=== PATIENT | female | born 1935 | race Caucasian/White ===

== ENCOUNTER 2024-01-26 17:49 | Emergency (ER) | payer MEDICARE, OTHER, SELFPAY ==
[2024-01-26 17:52] VITALS: BP 152/81
[2024-01-26] MEDS: TYLENOL 650 MG PO (19:45)
[2024-01-26 20:00] VITALS: BP 143/67
--- NOTE | 2024-01-26 20:40 | ED.GENMED ---
History of Present Illness
<Alva Turk PA-C - Last Filed: 01/27/24 00:15>
General
Chief Complaint: Fall
Source: patient
Exam Limitations: none
Time Seen by Provider: 01/26/24 18:53
Nursing documentation reviewed up to this point in time: agreed with
History of Present Illness
History of Present Illness:
88 Y/O F
not anticoaglated
today was walking up the concretet steps into the house and tripped hitting her face on the steps
no LOC
several lacerations to face, some bruising and pain
also with a skin tear on right 5th finger and some pain in here hand
mild headache and neck pain as well, feels sor between shoulders, no limited ROM
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
occured around 5 pm
no nausea, vomiting,, confusino, weakness, numbness, cp, sob, abdominal pain, pelvic pain, back pain
tetanus unknown
Past History
<BRONSON Guerra Last Filed: 01/27/24 00:15>
Past History
ED Past Medical History: HTN and Other (Osteopenia, GERD, C. difficile, Giardia); Negative NIDDM
ED Past Surgical History: Appendectomy
Social History
Tobacco: Non-smoker
Drug: None
Living: alone
Review of Systems
<Alva Turk PA-C - Last Filed: 01/27/24 00:15>
Review of Systems
Allergies reviewed?: Yes
All Other Systems: Not applicable
Phy Exam
<BRONSON Guerra Last Filed: 01/27/24 00:15>
Physical Exam
Physical Exam:
GENERAL: Alert , in no apparent distress
HEAD:
right forehead lacerations x 2 )5 cm, and 4 cm
right zyogma skin avulsion approx 1 cm
mild tendrness to zygoma on R but no significant facial bone tendenress
able to open jaw
NECK: no midline tenderness, active ROM intact, mild paraspinal muscle tenderness;
EYE: pupils equal and reactive, EOMs intact.
ENT: o/p clr, mmm. no hemotympanum
dried blood right nostril
no dental injury
CARDIAC: Regular rate and rhythm, no edema
LUNGS: Clear breath sounds bilaterally, no acute respiratory distress, no wheezes/rales/rhonchi
ABDOMEN: Soft, without focal tenderness, no r/g, no cvat
NEUROLOGICAL: Alert and oriented, no focal neuro deficits, CN intact, 5/5 strength, sensation intact, finger to nose normal
SKIN: Warm and dry, skin tear right 5th MCP joint approx 1 cm arc shaped, superficial
MUSCULOSKELETAL: arthritis b/l hands
mild pain in the 5th mcp joint/finger
no wrist tenderness
no hip tenderness
PSYCH: Normal and appropriate interaction.
Course
<Alva Turk PA-C - Last Filed: 01/27/24 00:15>
Orders/Labs/Results
Orders:
Orders
01/26/24 19:23
CT Cervical Spine W/o Iv Contr Urgent
Comment:
Reason For Exam: neck pain, fall
CT Facial Bones W/o Iv Contras Urgent
Comment:
Reason For Exam: right sided facial wounds after fall
Tetanus/Diphth/Acelpertussis [Adacel] 0.5 ml IM .ONCE ONE
01/26/24 19:24
CT Head W/o Iv Contrast Urgent
Comment:
Reason For Exam: fall hit head
CR Hand - Right Min 3 Views Urgent
Comment:
Reason For Exam: right hand injury fall
01/26/24 19:40
Acetaminophen [Tylenol] 650 mg PO NOW STA
01/26/24 21:03
CT Thoracic Spine W/o Iv Contr Urgent
Comment:
Reason For Exam: trauma
Vital Signs
Initial and Last Documented VS:
Initial Vital Signs
Temp Pulse Resp BP Pulse Ox
98.2 F 65 18 152/81 96
01/26/24 17:52 01/26/24 17:52 01/26/24 17:52 01/26/24 17:52 01/26/24 17:52
Last Documented Vital Signs
Temp Pulse Resp BP Pulse Ox
98.2 F 52 18 143/67 96
01/26/24 17:52 01/26/24 20:00 01/26/24 20:00 01/26/24 20:00 01/26/24 20:00
<Donis Ziegler MD - Last Filed: 01/26/24 21:51>
Orders/Labs/Results
Orders:
Orders
01/26/24 19:23
CT Cervical Spine W/o Iv Contr Urgent
Comment:
Reason For Exam: neck pain, fall
CT Facial Bones W/o Iv Contras Urgent
Comment:
Reason For Exam: right sided facial wounds after fall
Tetanus/Diphth/Acelpertussis [Adacel] 0.5 ml IM .ONCE ONE
01/26/24 19:24
CT Head W/o Iv Contrast Urgent
Comment:
Reason For Exam: fall hit head
CR Hand - Right Min 3 Views Urgent
Comment:
Reason For Exam: right hand injury fall
01/26/24 19:40
Acetaminophen [Tylenol] 650 mg PO NOW STA
01/26/24 21:03
CT Thoracic Spine W/o Iv Contr Urgent
Comment:
Reason For Exam: trauma
Vital Signs
Initial and Last Documented VS:
Initial Vital Signs
Temp Pulse Resp BP Pulse Ox
98.2 F 65 18 152/81 96
01/26/24 17:52 08/03/24 17:52 01/26/24 17:52 01/26/24 17:52 01/26/24 17:52
Last Documented Vital Signs
Temp Pulse Resp BP Pulse Ox
98.2 F 52 18 143/67 96
01/26/24 17:52 01/26/24 20:00 01/26/24 20:00 01/26/24 20:00 01/26/24 20:00
Procedures
<Alva Turk PA-C - Last Filed: 01/27/24 00:15>
Laceration Closure
Right Lateral Face:
Status of Wound: clean
Size of Wound in cm: 9
Description of Wound Edges: sharp
Preparation: cleaned with saline
Anesthesia: 1% Lidocaine with epi
Revision/Debridement: minor revision
Wound exploration: explored to base- no FB
Type of Closure: single layer closure
Skin Closure Material: 6-0 nylon
Number of sutures: 16
<Alva Turk PA-C - Last Filed: 01/27/24 00:15>
MDM/Problems Addressed
Differential Diagnosis Includes:
concussion, facial fracture, ICH, cervical strain, fracture
MDM/Problems Addressed:
88 y/o F with h/o htn, gerd, hyporhtyoid
no thinners
witnessed fall up the steps, pt recalls tripping and hitting face
was waearing glasses, has laceration son forehead and face and some pain to her right zygoma and forehead and nose, mild neck sorenss, no confusion, weakness, vomiting
also some right hand pain
on exam well apearing, neuro intact
no midline cerivcal tendernses initially able to range neck
cts of head/face show no ICH, + nasal fx age indeterminant
CT cs pein shows t1 compression fx minimal retropulsion, appears acute
pt reassessed by ed attending having some lower t spine soreness, so ct recommended by rads
she has chrnoic appearing t2, t12 fx pt made aware
ed attending dr. ziegler d/w nsg attending dr. peterson, recommneded motrin for pain and no collar and outpatient management given no signs of cuada equina
pt's wounds were irrigated and repaired
d/c home
<Alva Turk PA-C - Last Filed: 01/27/24 00:15>
*Critical Care Note
Total Time (30-74mins, 75-104mins- exclusive of procedures): Not Applicable
ED Attending Note
<Alva Turk PA-C - Last Filed: 01/27/24 00:15>
-
Portions of this chart may have been created with voice recognition software.� Occasional wrong word or��sound alike� substitutions may have occurred due to the inherent limitations of voice recognition software.
<Donis Ziegler MD - Last Filed: 01/26/24 21:51>
ED Attending Note
Patient seen and examined by attending physician: Yes
I performed the substantive portion of visit, reviewed & personally made and approve the management plan that is documented in note by myself or ASHLEY.: Yes
ED Attending Note:
Patient fell on the concrete. No syncope. Hit her head. Some mild neck pain. A small skin tear to her digit. No numbness tingling or weakness.
Large laceration of the right forehead. Mild paracervical and upper thoracic tenderness. In no distress. Nonfocal. No chest wall tenderness. Abdomen benign. Warm and dry perfusing well nonfocal.
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 Tetanus shot. CT scan showed a 30% compression fracture T1. The rest of the thoracic spine will be done for completeness. Discussed with neurosurgery. Symptomatic treatment and follow-up
Discharge Plan
Departure
Patient Disposition: Home (Routine Discharge)
Date of Disposition: 01/26/24
Time of Disposition: 22:25
Patient with high blood pressure during this ER visit?: Yes
Condition: Fair
Covid-19: Not Applicable
Discharge Problem:
Fracture of nasal bone, Fall, Compression fracture of T1 vertebra, Laceration of face, Finger fracture, right
Instructions: Laceration Repair With Stitches (DC), Vertebral Compression Fracture (DC), Nose Fracture ED
Prescriptions:
No Action
lisinopril 10 MG tablet
10 mg PO HS
sertraline 50 MG tablet
50 mg PO HS
acetaminophen [Tylenol Extra Strength] 500 MG tablet
1,000 mg PO Q6HPRN PRN (Reason: mild pain)
levothyroxine 50 MCG tablet
50 mcg PO HS
ibuprofen 200 MG tablet
400 mg PO Q4HPRN PRN (Reason: mild pain)
omeprazole [Prilosec] 20 MG capsule,delayed release(DR/EC)
20 mg PO DAILYPRN PRN (Reason: heartburn)
zolpidem 10 MG tablet
5 mg PO HS
polyethylene glycol 3350 17 GRAMS powder in packet
17 grams PO DAILY 0RF
oxycodone 5 MG tablet
5 mg PO Q4HPRN PRN (Reason: moderate/severe pain) Qty: 15 0RF
cefuroxime axetil 500 MG tablet
500 mg PO BID Qty: 6 0RF
Rx Instructions:
Take for 3 days
hydrocodone-acetaminophen [Wister] 1 EACH tablet
1 ea PO Q6HPRN PRN (Reason: severe pain) Qty: 8 0RF
Referrals:
Eloina Peterson MD [Active] - Follow up in 5-7 days
UNKNOWN - PT DOES,NOT KNOW [Family Provider] -
Activity Restrictions/Additional Instructions:
YOU HAVE A COMPRESSION FRACTURE OF T1 THAT LOOKS ACUTE; YOU HAVE A NOSE FRACTURE WELL WHICH IS NONDISPLACED AND SHOULD NOT REQUIRE ANY ADDITIONAL TREATMENT
YOUR NECK COULD BE SORE
TYLENOL AND MOTRIN FOR PAIN NEEDED
YOU ALSO HAVE OLD APPEARING T2 AND T12 COMPRESSION FRACTURES (AGE INDETERMINANT BUT DO NOT LOOK ACUTE LIKE T1)
WATCH FOR WORSENING PAIN, WEAKNESS IN ARMS OR LEGS, NUMBNESS IN ARMS OR LEGS OR ANY CONCERNS AND RETURN NEEDED
OTHERWISE FOLLOW UP WITH NEUROSURGERY OUTPATIENT
KEEP THE WOUND CLEAN AND DRY FOR 24 HOURS
AFTER THAT YOU CAN GET IT WET IN THE BATH/SHOWER ONCE A DAY AND MAKE SURE IT IS CLEAN AND THERE IS NO DRIED BLOOD ON THE STITCHES
APPLY NEOSPORIN AND A BANDAID
THE STITCHES NEED TO BE REMOVED IN ABOUT 7 DAYS, SEE YOUR DOCTOR FOR THIS.
THE LAST DAY BEFORE STITCHES OUT, NO OINTMENT, LEAVE OPEN TO AIR
WATCH FOR SIGNS OF INFECTION AND RETURN NEEDED FOR PAIN, SWELLING, REDNESS, DRAINAGE, BLEEDING.
ICE OFF AND ON
YOU MAY HAVE A SUBTLE FINGER FRACTURE BUT IT S DIFFICULT TO SAY BASED ON YOUR ARTHRITIS
WEAR THE SPLINT NEEDED FOR 3-5 DAYS
ICE OFF AND ON
THE RADIOLOGIST WILL REVIEW TOMORROW AND WE WILL CALL YOU FOR ANY ADDITIONAL FINDINGS IF NECESSARY
Interventions
Interventions:
*Risk Screen - Suicide Last Done: 01/26/24 18:23
*General Assessment Last Done: 01/26/24 18:23
*Neglect/Abuse Screening Last Done: 01/26/24 18:23
ED- Fall Risk Assessment Last Done: 01/26/24 18:23
*ED COVID-19 Vaccine History Last Done: 01/26/24 18:23
*Nursing Disposition Last Done: 01/26/24 22:47
ED-Musculoskeletal Assessment Last Done: 01/26/24 18:23
ED- Neurological Assessment Last Done: 01/26/24 18:23
ED-Skin Assessment Last Done: 01/26/24 18:23
Discharge Date and Time
Discharge Date/Time: 01/26/24 22:48
Print Language: LITHUANIAN
[2024-01-26] MEDS: ADACEL 0.5 ML IM (20:41)
== END 2024-01-26 22:48 | disposition home or self-care (01) ==
LOC: EMR 17:49
PROVIDERS: EMERGENCY PHYSICIAN Emergency Medicine
DX: S02.2XXA Fracture of nasal bones, initial encounter for closed fracture (principal); S22.010A Wedge compression fracture of first thoracic vertebra, initial encounter for closed fracture; S01.81XA Laceration without foreign body of other part of head, initial encounter; S62.606A Fracture of unspecified phalanx of right little finger, initial encounter for closed fracture; W10.9XXA Fall (on) (from) unspecified stairs and steps, initial encounter; I10 Essential (primary) hypertension; K21.9 Gastro-esophageal reflux disease without esophagitis; E03.9 Hypothyroidism, unspecified; Z23 Encounter for immunization
CPT/HCPCS: 99285; 90471; 12015; 70450; 70486; 72125; 72128; 73130; 90715